=== PATIENT | female | born 1965 | race Asian ===

== ENCOUNTER 2017-09-18 21:17 | Emergency (ER) | payer SELFPAY ==
[~2017-09-18] VITALS: Ht 162.6 cm; Wt 54.0 kg
[2017-09-19 05:04] VITALS: BP 125/96
== END 2017-09-19 05:12 | disposition home or self-care (01) ==
LOC: ER 21:29
DX: F20.9 Schizophrenia, unspecified (principal); R03.0 Elevated blood-pressure reading, without diagnosis of hypertension; Z91.19 Patient's noncompliance with other medical treatment and regimen
CPT/HCPCS: 99284